=== PATIENT | female | born 1945 | race Caucasian/White ===

== ENCOUNTER 2018-10-31 00:10 | Emergency (ER) | payer MEDICARE ==
[2018-10-31 00:38] LABS: BASOPHILS % (AUTO) 0.6 % (0.0-5.0); EOSINOPHILS % (AUTO) 2.5 % (0.0-8.0); HEMATOCRIT 39.4 % (36-48); LYMPHOCYTES % (AUTO) 25.3 % (21.0-51.0); MEAN CORPUSCULAR HEMOGLOBIN 32.4 pg (27.0-33.0); MEAN CORPUSCULAR HGB CONC 33.2 g/dL (32.0-36.0); MEAN CORPUSCULAR VOLUME 97.5 fL (79-99); MONOCYTES % (AUTO) 7.5 % (3.0-13.0); NEUTROPHILS % (AUTO) 64.1 % (40.0-77.0); PLATELET COUNT (AUTO) 186 K/uL (130-400); RED BLOOD CELL COUNT(AUTO) 4.04 MIL/uL (4.00-5.50); RED CELL DISTRIBUTION WIDTH 13.1 % (11.0-15.5); WHITE BLOOD COUNT (AUTO) 7.5 K/uL (4.8-10.8)
[2018-10-31 00:44] LABS: APPEARANCE,URINE Clear (CLEAR); BILIRUBIN,URINE Negative (NEGATIVE); COLOR,URINE Yellow (YELLOW); GLUCOSE, URINE (UA) Negative (NEGATIVE); KETONES,URINE Negative (NEGATIVE); LEUKOCYTE ESTERASE ,URINE Moderate (NEGATIVE); NITRATE,URINE Negative (NEGATIVE); OCCULT BLOOD,URINE Trace (NEGATIVE); PROTEIN,URINE Negative (NEGATIVE)
[2018-10-31 00:50] LABS: CREATININE 0.7 mg/dL (0.5-1.5); POTASSIUM 4.3 mmol/L (3.5-5.1)
[2018-10-31 00:55] LABS: ALBUMIN 3.6 g/dL (3.5-5.0); BILIRUBIN,TOTAL 0.4 mg/dL (0.2-1.0); TOTAL PROTEIN, SERUM 6.7 g/dL (6.0-8.3)
[2018-10-31 01:06] LABS: BACTERIA,URINE Rare /HPF (None Seen); RBC,URINE 0-1 /HPF (0-1); SQUAMOUS EPITHELIAL CELL,UR Rare /HPF (0-2)
[2018-10-31] MEDS ORDERED: ONDANSETRON HCL 4 MG/2 ML VIAL ONE (02:02)
[2018-10-31] MEDS ORDERED: MAG HYDROX/AL HYDROX/SIMETH ES 30 ML SUSP UDCUP ONE (02:02)
== END 2018-10-31 03:34 | disposition home or self-care (01) ==
LOC: EDH 00:10
DX: K80.70 Calculus of gallbladder and bile duct without cholecystitis without obstruction (principal); Z88.2 Allergy status to sulfonamides; Z85.3 Personal history of malignant neoplasm of breast; Z90.710 Acquired absence of both cervix and uterus; Z98.890 Other specified postprocedural states
CPT/HCPCS: 36415; 71045; 74021; 76705; 80053; 81001; 82550; 83690; 84484; 85025; 93005; 96374; 99284; J2405

== ENCOUNTER 2020-01-05 15:07 | Emergency (ER) | payer MEDICARE ==
[~2020-01-05 15:07] MED LIST: LEVO150 PO; MONT10TA26 PO; SERT100T12 PO
[2020-01-05 16:33] LABS: BASOPHILS % (AUTO) 0.6 % (0.0-5.0); EOSINOPHILS % (AUTO) 2.6 % (0.0-8.0); HEMATOCRIT 41.9 % (36-48); LYMPHOCYTES % (AUTO) 16.3 % (21.0-51.0); MEAN CORPUSCULAR HGB CONC 32.2 g/dL (32.0-36.0); MEAN CORPUSCULAR VOLUME 99.3 fL (79-99); MONOCYTES % (AUTO) 9.1 % (3.0-13.0); PLATELET COUNT (AUTO) 228 K/uL (130-400); RED BLOOD CELL COUNT(AUTO) 4.22 MIL/uL (4.00-5.50); RED CELL DISTRIBUTION WIDTH 12.6 % (11.0-15.5); WHITE BLOOD COUNT (AUTO) 8.1 K/uL (4.8-10.8)
[2020-01-05 16:49] LABS: POTASSIUM 3.9 mmol/L (3.5-5.1)
[2020-01-05 16:53] LABS: ALBUMIN 3.7 g/dL (3.5-5.0); BILIRUBIN,TOTAL 0.3 mg/dL (0.2-1.0); TOTAL PROTEIN, SERUM 7.3 g/dL (6.0-8.3)
[2020-01-05 17:16] LABS: RAPID GROUP A STREP NEGATIVE (NEGATIVE)
== END 2020-01-05 18:20 | disposition home or self-care (01) ==
LOC: EDH 15:07
DX: J06.9 Acute upper respiratory infection, unspecified (principal); Z90.49 Acquired absence of other specified parts of digestive tract; Z88.2 Allergy status to sulfonamides
CPT/HCPCS: 36415; 80053; 83605; 85025; 87040; 87486; 87581; 87633; 87798; 87804; 87880

== ENCOUNTER 2024-01-21 05:05 | Observation (INO) | payer MEDICARE ==
[2024-01-16 12:49] VITALS: BP 179/91; PULSE 85; RESP 17
[~2024-01-21] VITALS: Ht 160 cm; Wt 85.9 kg
[2024-01-21] VITALS (26 sets, daily range): BP systolic 130–163; BP diastolic 49–78; PULSE 71–88; RESP 12–19; O2SAT 95
[~2024-01-21 05:05] MED LIST changes: +AMIT25TA9 PO; +FAMO20TA8 PO; +MONT-39 PO; -MONT10TA26 PO; +NIAC500C9 PO; +SERT-440 PO; -SERT100T12 PO; +SIMV10TA97 PO; +VITAMIN B12 PO
[2024-01-21] MEDS: LACTATED RINGERS 1000ML 1,000 ML IV ONE (06:45)
[2024-01-21] MEDS: CEFAZOLIN SODIUM 2 GM VIAL ONE (06:45)
[2024-01-21] MEDS ORDERED: 0.9%NACL 48.45 ML, ROPIVACAINE 0.5% 49.25ML, EPINEPH 0.5MG KETOROLAC 30MG,CLONIDINE 80MCG IV PRN (09:00)
[2024-01-21] MEDS ORDERED: PROPOFOL 10 MG/ML 20ML VIAL IV ONE ×4 (09:39→11:50)
[2024-01-21] MEDS ORDERED: GENTAMICIN SULFATE 80 MG/2 ML VIAL ONE (09:39)
[2024-01-21] MEDS ORDERED: DEXAMETHASONE SOD PHOSPHATE 10MG/ML 1ML VIAL ONE (09:39)
[2024-01-21] MEDS ORDERED: ONDANSETRON 4MG INJ ONE (09:39)
[2024-01-21] MEDS ORDERED: CEFAZOLIN SODIUM 1 GM VIAL ONE (09:39)
[2024-01-21] MEDS ORDERED: MIDAZOLAM HCL 1 MG/ML 2ML VIAL ONE (09:40)
[2024-01-21] MEDS: CEFAZOLIN SODIUM 1 GM VIAL ONE (10:05)
[2024-01-21] MEDS: CEFAZOLIN SODIUM 1 GM VIAL IVPB ONE (10:15)
[2024-01-21] MEDS: TRANEXAMIC ACID 1000MG/10ML ONE (10:15)
[2024-01-21] MEDS: GENTAMICIN SULFATE 80 MG/2 ML VIAL TP ONE (10:35)
[2024-01-21] MEDS: CEFAZOLIN SODIUM 2 GM VIAL IJ ONE (10:35)
[2024-01-21] MEDS ORDERED: FENTANYL CITRATE PF 50 MCG/1 ML 2ML VIAL ONE (10:41)
[2024-01-21] MEDS ORDERED: MAG/ALUM/SIMETH 30 ML UDCUP PO PRN (15:00)
[2024-01-21] MEDS ORDERED: BENZOCAINE/MENTH/CETYLPYRD CL 1 EACH LOZENGE MM PRN (15:00)
[2024-01-21] MEDS ORDERED: DIPHENHYDRAMINE HCL 25 MG CAPSULE PO SCH (15:00)
[2024-01-21] MEDS ORDERED: ONDANSETRON 4MG INJ IVP PRN (15:00)
[2024-01-21] MEDS ORDERED: DIPHENOXYLATE HCL/ATROPINE 2.5/0.025 MG TAB PO PRN (15:00)
[2024-01-21] MEDS ORDERED: ACETAMINOPHEN 325 MG TAB PO PRN ×2 (15:00)
[2024-01-21] MEDS ORDERED: LACTULOSE 20 GM/30 ML UDCUP PO PRN (15:00)
[2024-01-21] MEDS ORDERED: ACETAMINOPHEN 325 MG TAB PO SCH (15:00)
[2024-01-21] MEDS ORDERED: DiphenhydrAMINE HCL 50 MG/ML VIAL IM PRN (15:00)
[2024-01-21] MEDS: 0.9%NACL 1000ML 1,000 ML IV SCH (15:00)
[2024-01-21] MEDS ORDERED: DIPHENHYDRAMINE HCL 25 MG CAPSULE PO PRN (15:00)
[2024-01-21] MEDS ORDERED: FAMOTIDINE 20MG TAB PO PRN (15:30)
[2024-01-21] MEDS: HYDROMORPH /0.9% NACL/PF PCA 50 ML IV PRN (15:44)
[2024-01-21] MEDS: CEFAZOLIN SODIUM 3 GM in DEXTROSE 5%-WATER 100 ML IVPB SCH (17:22)
[2024-01-21] MEDS: TRAMADOL HCL 50 MG TABLET PO PRN (17:22)
[2024-01-21] MEDS ORDERED: CEFAZOLIN SODIUM 2 GM VIAL IVPB SCH (18:00)
[2024-01-21] MEDS: SIMVASTATIN 10 MG TABLET PO SCH (19:51)
[2024-01-22 01:03] VITALS: BP 139/77; PULSE 86; RESP 18
[2024-01-22 03:56] LABS: HEMATOCRIT 34.6 % (36-48); MEAN CORPUSCULAR HEMOGLOBIN 32.4 pg (27.0-33.0); MEAN CORPUSCULAR HGB CONC 32.4 g/dL (32.0-36.0); RED BLOOD CELL COUNT(AUTO) 3.46 MIL/uL (4.00-5.50); RED CELL DISTRIBUTION WIDTH 11.9 % (11.0-15.5); WHITE BLOOD COUNT (AUTO) 11.5 K/uL (4.8-10.8)
[2024-01-22 04:04] LABS: CREATININE 0.9 mg/dL (0.5-1.0); POTASSIUM 4.1 mmol/L (3.5-5.1)
[2024-01-22 04:08] LABS: INR <= 0.93 (0.85-1.15); PROTHROMBIN TIME 10.8 SEC (9.6-11.6)
[2024-01-22 04:09] LABS: PARTIAL THROMBOPLASTIN TIME 24.2 SEC (26.3-35.5)
[2024-01-22 04:58] VITALS: BP 129/65; PULSE 88; RESP 17
[2024-01-22] MEDS: LEVOTHYROXINE 150 MCG TABLET PO SCH (06:06)
[2024-01-22 07:27] VITALS: BP 119/63; PULSE 61; RESP 18
[2024-01-22] MEDS: AMITRIPTYLINE 25 MG TABLET PO SCH (08:28)
[2024-01-22] MEDS: RIVAROXABAN 10 MG TABLET PO SCH (08:28)
[2024-01-22 09:39] VITALS: O2SAT 95
[2024-01-22 11:17] VITALS: BP 116/41; PULSE 88; RESP 17
== END 2024-01-22 16:50 | disposition home or self-care (01) ==
LOC: DAH 05:05 → DAHIP 05:06 → 4DH 13:07
PROVIDERS: ADMIT Orthopaedic Surgery; ATTEND Orthopaedic Surgery
DX: M17.12 Unilateral primary osteoarthritis, left knee (principal); K21.9 Gastro-esophageal reflux disease without esophagitis; E03.9 Hypothyroidism, unspecified; E66.9 Obesity, unspecified; F32.A Depression, unspecified; I10 Essential (primary) hypertension; M10.9 Gout, unspecified; Z85.3 Personal history of malignant neoplasm of breast; Z90.710 Acquired absence of both cervix and uterus; Z96.652 Presence of left artificial knee joint; Z79.899 Other long term (current) drug therapy
CPT/HCPCS: 87641; 27447; 96365; 96366 ×2; 96368; 97161; 97012; 97116 ×3; 97530 ×5; 80048; 85027; 85610; 85730; 36415; G0378 ×24; A4510; A4663; J7120 ×2; A4215 ×2; A4649 ×4; J3010; J0690 ×6; J3490; J1100; J0171; J1580 ×2; J2250; J7060; J2704 ×4; J2405; J1885; J2795; J0735; A6223; A4930; C1763 ×2; C1776; A4223; A4222; A4221; A6450; J7030

== ENCOUNTER → 2025-10-06 | Outpatient (CLI) | payer MEDICARE ==
[~2025-10-06] MED LIST changes: +AMIT25TA21 PO; -AMIT25TA9 PO
--- NOTE | 2025-10-06 16:40 | HMCIMG ---
EXAMINATION: ULTRASOUND OF THE RETROPERITONEUM. CLINICAL HISTORY: Gross hematuria. COMPARISON: None provided. TECHNIQUE: Real-time grayscale and color ultrasound images of the kidneys. FINDINGS: The kidneys are normal in caliber; the right kidney measures 9.8 x 4.8 x 4.5 cm in its craniocaudal, AP, and transverse dimensions, and the left kidney measures 10.8 x 4.5 x 4.2 cm in its craniocaudal, AP, and transverse dimensions. There is normal renal cortical thickness and cortical echogenicity. There is no renal calculus. There is no hydronephrosis. The urinary bladder is normal in caliber and wall thickness. There are no calculi in the urinary bladder. Pre-void volume is 477 cc and post-void volume is 16 cc. IMPRESSION: No significant abnormality. /[place]
== END | disposition home or self-care (01) ==
LOC: RAH 08:29
PROVIDERS: ATTEND Family Medicine Adult Medicine
DX: R35.0 Frequency of micturition (principal); R31.0 Gross hematuria
CPT/HCPCS: 76770